=== PATIENT | female | born 1980 | race Caucasian/White ===

== ENCOUNTER 2017-12-31 20:02 | Emergency (ER) | payer OTHER ==
[~2017-12-31] VITALS: Ht 149.9 cm; Wt 49.9 kg
[2017-12-31] MEDS ORDERED: NORCO 5-325 TA1 EACH PO ×2 (21:00→21:01)
[2017-12-31 21:41] VITALS: BP 144/97
== END 2017-12-31 21:42 | disposition home or self-care (01) ==
LOC: M.ERS 20:02
DX: S52.121A Displaced fracture of head of right radius, initial encounter for closed fracture (principal); M25.522 Pain in left elbow; W01.0XXA Fall on same level from slipping, tripping and stumbling without subsequent striking against object, initial encounter; Y93.89 Activity, other specified; Y92.89 Other specified places as the place of occurrence of the external cause; Y99.8 Other external cause status

== ENCOUNTER → 2018-10-05 | Outpatient (CLI) | payer OTHER ==
[~2018-10-05] MED LIST: NORCO 5-325 TA1 EACH PO
== END ==
LOC: M.RAD 17:15
DX: M25.522 Pain in left elbow (principal)

== ENCOUNTER 2020-02-06 17:38 | Emergency (ER) | payer OTHER ==
[~2020-02-06] VITALS: Ht 149.9 cm; Wt 52.2 kg
[2020-02-06 19:43] VITALS: BP 145/70
== END 2020-02-06 19:43 | disposition home or self-care (01) ==
LOC: M.ERS 17:38
DX: M25.522 Pain in left elbow (principal); R20.2 Paresthesia of skin; Z88.0 Allergy status to penicillin; Z98.51 Tubal ligation status